=== PATIENT | female | born 1985 | race African-American/Black ===

== ENCOUNTER 2016-09-14 18:11 | Emergency (ER) | payer OTHER ==
[~2016-09-14] VITALS: Ht 162.6 cm; Wt 122.5 kg
[~2016-09-14 18:11] MED LIST: AUGMENTIN 875875 MG PO; BACTRIM DS TAB1 EACH PO; FLEXERIL PO; IBUPROFEN 600600 M1 PO; KEFLEX500 MG PO; MACROBID 100 M100 M1 PO; NOHOMEMEDICATIONS; NORCO 5-325 TA1 EACH PO; RIFAMPIN 300 M300 M1 PO
[2016-09-14 18:12] VITALS: BP 135/85
[2016-09-14] MEDS ORDERED: TESSALON PERLE100 MG PO (18:38)
[2016-09-14] MEDS ORDERED: VENTOLIN HFA 1818 GM INH (18:38)
== END 2016-09-14 18:49 | disposition home or self-care (01) ==
LOC: ER 18:11
DX: J30.9 Allergic rhinitis, unspecified (principal); J98.01 Acute bronchospasm; Z88.1 Allergy status to other antibiotic agents; Z88.2 Allergy status to sulfonamides